=== PATIENT | male | born 1960 | race Caucasian/White ===

== ENCOUNTER 2022-11-01 17:56 | Emergency (ER) | payer OTHER, SELFPAY ==
[2022-11-01 18:02] VITALS: BP 143/83; PULSE 67; RESP 16; TEMP 36.6; O2SAT 97; BMI 25.8
--- NOTE | 2022-11-01 18:21 | CT_ITS ---
The [address] [address] Patient Name: CHRISTOFER CARTER MRN: [id number] date: 1960 Sex: M Assigned Patient Location: ER Current Patient Location: Accession/Order Number: [id number] Exam Date: 11/01/2022 18:29 Report Date: 11/01/2022 19:07 At the request of: CURTIS CLARK Procedure: CT lumbar spine wo con EXAM: CT lumbar spine wo con HISTORY: The patient is a 61-year-old male, Fall COMPARISON: None. TECHNIQUE: CT images were obtained through the lumbar spine without intravenous contrast and reformatted in 2 dimensions. Dose reduction techniques were achieved by using automated exposure control and/or adjustment of mA and/or kV according to patient size and/or use of iterative reconstruction technique. FINDINGS: The axial images demonstrate no fractures or cortical discontinuities throughout the lumbar spine. The sacroiliac joints are maintained. Incidentally noted is a left renal calculus. The coronal and sagittal reformatted images demonstrate no fractures or loss of vertebral body height throughout the lumbar spine. There is no significant malalignment or disc space narrowing. The soft tissue images demonstrate no evidence of sizable disc herniations or central canal stenosis throughout the lumbar spine. CT/CT lumbar spine wo con IMPRESSION: This is a relatively negative CT scan of the lumbar spine with no fractures or loss of vertebral body height. Electronically authenticated by: LISBETH REA Date: 11/01/2022 19:07
--- NOTE | 2022-11-01 18:22 | ED_ITS ---
Documented by User: CAREY Bean 11/01/22 19:17 HPI - Back Pain/Injury General Chief Complaint: Back Pain/Injury Stated Complaint: FALL AT WORK BACK INJURY Time Seen by Provider: 11/01/22 18:04 Source: patient Mode of arrival: walk-in Limitations: no limitations History of Present Illness HPI Narrative: patient is a 61-year-old male who presents to the emergency department for the evaluation of an injury to the low back that occurred just prior to arrival. 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 He states he did hit his left elbow but has no pain to this area. He denies any head injury, loss of consciousness. No pain to the neck. He denies any peripheral paresthesia or urinary symptoms. He was able to drive himself to the hospital. Related Data Previous Rx's Medication Instructions Recorded hydrocodone 5 mg-acetaminophen 325 1 tab PO Q6H PRN pain #8 tabs 11/01/22 mg tablet methocarbamol 750 mg tablet 750 mg PO TID PRN pain #20 tabs 11/01/22 naproxen sodium 550 mg tablet 550 mg PO BID PRN pain #10 tabs 11/01/22 Allergies Allergy/AdvReac Type Severity Reaction Status Date / Time No Known Drug Allergies Allergy Verified 11/01/22 18:02 Review of Systems ROS Constitutional Denies: fever or chills Ears, nose, mouth, and throat Denies: throat pain Cardiovascular Denies: chest pain Respiratory Denies: shortness of breath or cough Gastrointestinal Denies: nausea or vomiting Musculoskeletal Reports: back pain; Denies: neck pain Integumentary/Breast Denies: rash Neurological Denies: headache PFSH PFSH Social History Smoking status: Current every day smoker Exam Narrative Exam Narrative: Gen.: Awake, alert, in no distress Head: Normocephalic, atraumatic ENT: Moist mucous membranes Respiratory: No respiratory distress back: No bony point tenderness of the C-spine with diffuse tenderness of the lumbar spine, no bony point tenderness of the thoracic spine. No obvious deformity or step-off. Mild paraspinal tenderness of the right lumbar spine. Extremities: Moves extremities equally, no injuries noted, normal flexion and extension of the left elbow, no joint effusion or tenderness noted. Normal dorsiflexion and plantarflexion of the lower extremities with no decrease in sensation to the medial thighs Psych: Normal mood and affect Neuro: No focal neuro deficit Skin: Warm, dry, intact Constitutional Vital Signs, click to edit/add: Last Vital Signs Temp 98 F 11/01/22 18:02 Pulse 67 11/01/22 18:02 Resp 16 11/01/22 18:02 BP 143/83 H 11/01/22 18:02 Pulse Ox 97 11/01/22 18:02 O2 Del Method Room Air 11/01/22 18:02 Course Vital Signs Vital signs: Vital Signs Temperature 98 F 11/01/22 18:02 Pulse Rate 67 11/01/22 18:02 Respiratory Rate 16 11/01/22 18:02 Blood Pressure 143/83 H 11/01/22 18:02 Pulse Oximetry 97 11/01/22 18:02 Oxygen Delivery Method Room Air 11/01/22 18:02 Temperature 98 F 11/01/22 18:02 Pulse Rate 67 11/01/22 18:02 Respiratory Rate 16 11/01/22 18:02 Blood Pressure 143/83 H 11/01/22 18:02 Pulse Oximetry 97 11/01/22 18:02 Oxygen Delivery Method Room Air 11/01/22 18:02 MDM - Back Pain/Injury MDM Narrative Medical decision making narrative: CT of the lumbar spine with no evidence of acute process, patient will be treated for musculoskeletal low back pain for home with NSAIDs and muscle relaxants. He is given work restrictions and encouraged to follow-up with occupational health in 3-5 days. Light duty/activity as tolerated for work. Return to the Emergency Room if symptoms change or worsen. Rest, ice, gentle stretching. Medical Records Attestation: I reviewed the patient's medical records. Imaging Data CT lumbar spine without contrast: Attestation: I have reviewed the pertinent imaging results. Discharge Plan Discharge Chief Complaint: Back Pain/Injury Clinical Impression: Lumbar strain, Fall Patient Disposition: Home, Self-Care Time of Disposition Decision: 19:13 Condition: Good Prescriptions / Home Meds: New hydrocodone-acetaminophen 5-325 mg tablet 1 tab PO Q6H PRN (Reason: pain) Qty: 8 0RF Rx Instructions: Dx: M52.5 methocarbamol 750 mg tablet 750 mg PO TID PRN (Reason: pain) Qty: 20 0RF naproxen sodium 550 mg tablet 550 mg PO BID PRN (Reason: pain) Qty: 10 0RF Instructions: Low Back Strain (ED), Back Pain (ED) Additional Instructions: Follow up with occupational health in 2-3 days Stand Alone Forms: Portal Instructions Referrals: Physician,Non-Staff, MD [Primary Care Provider] - 1 week Discharge Date/Time: 11/01/22 19:33 Documented by User: Doris Cortes MD 11/03/22 19:39 HPI - Back Pain/Injury General Chief Complaint: Back Pain/Injury Stated Complaint: FALL AT WORK BACK INJURY Time Seen by Provider: 11/01/22 18:04 Related Data Previous Rx's Medication Instructions Recorded hydrocodone 5 mg-acetaminophen 325 1 tab PO Q6H PRN pain #8 tabs 11/01/22 mg tablet methocarbamol 750 mg tablet 750 mg PO TID PRN pain #20 tabs 11/01/22 naproxen sodium 550 mg tablet 550 mg PO BID PRN pain #10 tabs 11/01/22 Allergies Allergy/AdvReac Type Severity Reaction Status Date / Time No Known Drug Allergies Allergy Verified 11/01/22 18:02 PFSH PFSH Social History Smoking status: Current every day smoker Exam Constitutional Vital Signs, click to edit/add: Last Vital Signs Temp 98 F 11/01/22 18:02 Pulse 67 11/01/22 18:02 Resp 16 11/01/22 18:02 BP 143/83 H 11/01/22 18:02 Pulse Ox 97 11/01/22 18:02 O2 Del Method Room Air 11/01/22 18:02 Course Vital Signs Vital signs: Vital Signs Temperature 98 F 11/01/22 18:02 Pulse Rate 67 11/01/22 18:02 Respiratory Rate 16 11/01/22 18:02 Blood Pressure 143/83 H 11/01/22 18:02 Pulse Oximetry 97 11/01/22 18:02 Oxygen Delivery Method Room Air 11/01/22 18:02 Temperature 98 F 11/01/22 18:02 Pulse Rate 67 11/01/22 18:02 Respiratory Rate 16 11/01/22 18:02 Blood Pressure 143/83 H 11/01/22 18:02 Pulse Oximetry 97 11/01/22 18:02 Oxygen Delivery Method Room Air 11/01/22 18:02 MDM - Back Pain/Injury MDM Narrative Medical decision making narrative: CT of the lumbar spine with no evidence of acute process, patient will be treated for musculoskeletal low back pain for home with NSAIDs and muscle relaxants. He is given work restrictions and encouraged to follow-up with [facility] in 3-5 days. Light duty/activity as tolerated for work. Return to the Emergency Room if symptoms change or worsen. Rest, ice, gentle stretching. Attending physician attestation I have reviewed the mid-level documentation, agree with the documentation, medical decision making and treatment plan as outlined by the mid-level provider. Discharge Plan Discharge Chief Complaint: Back Pain/Injury Clinical Impression: Lumbar strain, Fall Patient Disposition: Home, Self-Care Time of Disposition Decision: 19:13 Condition: Good Prescriptions / Home Meds: New hydrocodone-acetaminophen 5-325 mg tablet 1 tab PO Q6H PRN (Reason: pain) Qty: 8 0RF Rx Instructions: Dx: M52.5 methocarbamol 750 mg tablet 750 mg PO TID PRN (Reason: pain) Qty: 20 0RF naproxen sodium 550 mg tablet 550 mg PO BID PRN (Reason: pain) Qty: 10 0RF Instructions: Low Back Strain (ED), Back Pain (ED) Additional Instructions: Follow up with occupational health in 2-3 days Stand Alone Forms: Portal Instructions Referrals: Physician,Non-Staff, MD [Primary Care Provider] - 1 week Discharge Date/Time: 11/01/22 19:33
[2022-11-01] MEDS: KETOROLAC TROMETHAMINE 10 MG TABLET PO (18:52)
== END 2022-11-01 19:33 | disposition home or self-care (01) ==
PROVIDERS: Emergency Provider Emergency Medicine
DX: S39.012A Strain of muscle, fascia and tendon of lower back, initial encounter (principal); W01.0XXA Fall on same level from slipping, tripping and stumbling without subsequent striking against object, initial encounter
CPT/HCPCS: 72131; 99284